=== PATIENT | female | born 2000 | race Caucasian/White ===

== ENCOUNTER 2020-04-01 18:23 | Emergency (ER) | payer OTHER ==
[~2020-04-01] VITALS: Ht 162.6 cm; Wt 70.3 kg
[2020-04-01 19:13] LABS: BASO % 0.2 % (0.0-1.0); EOS % 0.4 % (0.0-3.0); HEMATOCRIT 43.1 % (36.0-47.0); HEMOGLOBIN 14.6 g/dl (12.0-15.5); LYMPH # 2.1 10^3/uL (1.5-5.0); LYMPH % 20.3 % (24.0-44.0); MEAN CORPUSCULAR HEMOGLOBIN 28.8 pg (27.0-33.0); MEAN CORPUSCULAR HGB CONC 33.9 g/dl (32.0-36.5); MONO # 0.7 10^3/uL (0.0-0.8); MONO % 6.7 % (2.0-8.0); NEUTROPHILS # 7.4 10^3/uL (1.5-8.5); NEUTROPHILS % 72.1 % (36.0-66.0); PLATELET COUNT, AUTOMATED 300 10^3/uL (150-450); RED BLOOD COUNT 5.07 10^6/uL (4.00-5.40); WHITE BLOOD COUNT 10.2 10^3/uL (4.0-10.0)
--- NOTE | 2020-04-01 19:20 | REP ---
INDICATION: CHEST PAIN. COMPARISON: No comparison study TECHNIQUE: Portable upright AP chest radiograph. FINDINGS: The lungs are well inflated and free of infiltrate. Pleural angles are sharp. Heart size is normal. Pulmonary vasculature is not increased. Nipple jewelry is noted incidentally. IMPRESSION: No active disease. <Electronically signed by Randy Toro > 04/01/201916
[2020-04-01] MEDS ORDERED: GI COCKTAIL 50ML BTL(HYOSCYAMINE/MAALOX/LIDOCAINE VISCOUS)(1:3:1) PO ONE (19:25)
[2020-04-01 19:41] LABS: BLOOD UREA NITROGEN 11 MG/DL (7-18); CALCIUM LEVEL 9.3 MG/DL (8.5-10.1); CARBON DIOXIDE LEVEL 27 MEQ/L (21-32); CHLORIDE LEVEL 108 MEQ/L (98-107); CK-MB VALUE MASS < 1.0 NG/ML (<3.6); CPK CREATINE PHOSPHOKINASE 99 U/L (26-192); CREATININE FOR GFR 0.94 MG/DL (0.55-1.30); GLUCOSE, FASTING 77 MG/DL (70-100); MB/CK RELATIVE INDEX 1.01 (< OR =4); POTASSIUM SERUM 4.1 MEQ/L (3.5-5.1); SODIUM LEVEL 140 MEQ/L (136-145); TROPONIN I < 0.02 NG/ML (< 0.10)
--- NOTE | 2020-04-01 19:45 | ECGEPIP ---
[facility] - ED Test Date: 2020-04-01 Pat Name: FEDE YOST Department: Room: - Gender: Female Human Resources Clerk: : [id number] Requested By: BJ Harry PA-C Order Number: [id number] Reading MD: Aura Pang Measurements Intervals [place] Rate: 75 P: 34 CO: 140 QRS: 75 QRSD: 88 T: 40 QT: 354 QTc: 395 Interpretive Statements Normal sinus rhythm No prior Electronically Signed on 04-01-2020 19:45:06 EST by Aura Pang
[2020-04-01 19:51] LABS: HCG, SERUM QUALITATIVE NEGATIVE (NEGATIVE)
[2020-04-01 20:24] VITALS: BP 124/82
[2020-04-01] MEDS ORDERED: PANT40TA29 PO (20:24)
== END 2020-04-01 20:52 | disposition home or self-care (01) ==
LOC: M ED 19:37
DX: R13.10 Dysphagia, unspecified (principal); R07.9 Chest pain, unspecified; F17.200 Nicotine dependence, unspecified, uncomplicated